=== PATIENT | male | born 1980 | race Caucasian/White ===

== ENCOUNTER 2020-01-19 10:55 | Emergency (ER) | payer MEDICAID | END 2020-01-19 12:05 | disposition left against medical advice (07) | LOC: JP.ED 10:55 | DX: Z53.21 Procedure and treatment not carried out due to patient leaving prior to being seen by health care provider (principal) ==

== ENCOUNTER 2020-08-22 22:53 | Emergency (ER) | payer MEDICAID ==
[2020-08-22 23:10] VITALS: BP 103/69; PULSE 101
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
[2020-08-22] MEDS: HYDROmorphone 1 MG/ML Syringe IM ONE (23:33)
== END 2020-08-23 00:55 | disposition home or self-care (01) ==
LOC: JP.ED 22:53
DX: S02.642D Fracture of ramus of left mandible, subsequent encounter for fracture with routine healing (principal); S12.491D Other nondisplaced fracture of fifth cervical vertebra, subsequent encounter for fracture with routine healing; S82.84 Bimalleolar fracture of lower leg; S32.421D Displaced fracture of posterior wall of right acetabulum, subsequent encounter for fracture with routine healing; S02.19XA Other fracture of base of skull, initial encounter for closed fracture; Z79.899 Other long term (current) drug therapy; X58.XXXD Exposure to other specified factors, subsequent encounter
CPT/HCPCS: 96372; 99283; 99284; J1170

== ENCOUNTER 2020-09-07 14:27 | Emergency (ER) | payer MEDICAID ==
[2020-09-07] MEDS ORDERED: HYDROmorphone 1 MG/ML Syringe IM ONE ×2 (14:46→16:10)
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
--- NOTE | 2020-09-07 16:34 | CRLCR ---
Indication: Wound Technique: Three views of the right ankle Comparison: None available Findings/Impression: Bones: Postsurgical changes with 3 screws traversing the anterior and mid talus and a small adjacent metallic density. Multiple small ovoid sclerotic lesions in the distal tibia and fibula, talus, calcaneus and tarsal bones, which may represent osteopoikilosis if there is no history of neoplasm. Correlate clinically. No acute fracture or dislocation. A focus of osseous lucency in the anterior aspect of the distal tibia, in the region of an overlying soft tissue ulcer, however without gross osseous erosive or destructive changes. Joint spaces: Ovoid calcific densities projecting over the lateral ankle joint space on the oblique view, and several calcifications posterior to the talus, possibly related to the overlying soft tissues, although intra-articular calcifications are not excluded. Soft tissues: Soft tissue swelling. An anterior distal leg/proximal ankle soft tissue irregularity and lucency compatible with a wound/ulcer. Multiple soft tissue calcifications about the ankle. Dictated by Mauro Gee MD @ 09/07/2020 4:32:21 PM Dictated by: Mauro Gee MD @ 09/07/2020 16:32:28 (Electronically Signed)
== END 2020-09-07 17:22 | disposition home or self-care (01) ==
LOC: JP.ED 14:27
DX: L03.115 Cellulitis of right lower limb (principal); R56.9 Unspecified convulsions; Z79.899 Other long term (current) drug therapy; Z72.0 Tobacco use
CPT/HCPCS: 36415; 73610; 80053; 83605; 84145; 85025; 86140; 96372; 99284; J1170

== ENCOUNTER 2020-09-07 18:54 | Emergency (ER) | payer MEDICAID ==
[2020-09-07] MEDS ORDERED: Acetaminophen/HYDROcodone 325-5 MG Tab PO ONE (19:22)
--- NOTE | 2020-09-07 19:44 | EDM.PDOC ---
ED HPI GENERAL MEDICAL PROBLEM - General Chief Complaint: Lower Extremity Injury/Pain Stated Complaint: MEDICAL VIA [place] FOOT PAIN Time Seen by Provider: 09/07/20 19:14 Source of Information: Reports: Patient, Old Records History Limitations: Reports: No Limitations - History of Present Illness INITIAL COMMENTS - FREE TEXT/NARRATIVE: Kenan is a 40-year-old male presenting to the ED via [facility] for evaluation of right ankle and foot pain. The patient was seen in thoroughly evaluated in the emergency room earlier today and was started on Bactrim for cellulitis of his right foot and hydrocodone for pain control. The patient was discharged earlier today, however, his cousin who was going to give him a ride back home to [place] left without taking the patient and the patient thought it would be prudent to try to walk back to [place], [place] using his walker and made it about 6 blocks from the hospital until he tripped on a curb at [facility] at the corner of [address] causing him to invert his foot resulting in pain. Patient called EMS who brought him back to the hospital for evaluation. The patient had evidence of some bleeding on the double pair of socks that he was wearing, however, this appears to have come from the wound which is not actively bleeding at this time. The patient reports that he did not fall. We will repeat an x- ray of his ankle to make sure there is no change in the hardware. right foot Pain Score (Numeric/FACES): 10 - Related Data Allergies Allergy/AdvReac Type Severity Reaction Status Date / Time No Known Allergies Allergy Verified 09/07/20 19:02 Home Meds: Home Meds Gabapentin [Neurontin] 800 mg PO TID 01/19/20 [History] Cyclobenzaprine [Flexeril] 10 mg PO TID PRN 08/22/20 [History] HYDROmorphone [Dilaudid] 2 mg PO Q4H PRN 08/22/20 [History] Phenytoin 100 mg PO TID 08/22/20 [History] levETIRAcetam [Keppra] 1,000 mg PO BID 08/22/20 [History] Past Medical History HEENT History: Reports: None Gastrointestinal History: Reports: None Musculoskeletal History: Reports: Fracture Neurological History: Reports: Seizure, Other (See Below) Other Neuro History: numbness in jaw from injury Psychiatric History: Reports: Anxiety, Depression - Infectious Disease History Infectious Disease History: Reports: Chicken Pox - Past Surgical History Head Surgeries/Procedures: Reports: None HEENT Surgical History: Reports: Oral Surgery Other HEENT Surgeries/Procedures: titanium plate in jaw numbness from injury GI Surgical History: Reports: Appendectomy Neurological Surgical History: Reports: None Musculoskeletal Surgical History: Reports: Other (See Below) Other Musculoskeletal Surgeries/Procedures:: plate in jaw Dermatological Surgical History: Reports: None Social & Family History - Tobacco Use Tobacco Use Status *Q: Current Every Day Tobacco User Years of Tobacco use: 24 Packs/Tins Daily: 0.5 - Caffeine Use Caffeine Use: Reports: Coffee, Soda - Recreational Drug Use Recreational Drug Use: No Review of Systems - Review of Systems Review Of Systems: See Below Constitutional: Reports: No Symptoms Eyes: Reports: No Symptoms Ears: Reports: No Symptoms Nose: Reports: No Symptoms Mouth/Throat: Reports: No Symptoms Respiratory: Reports: No Symptoms Cardiovascular: Reports: No Symptoms GI/Abdominal: Reports: No Symptoms Genitourinary: Reports: No Symptoms Musculoskeletal: Reports: Joint Pain (Right ankle), Joint Swelling (Right ankle) Skin: Reports: Wound (Dorsal right ankle) Neurological: Reports: Difficulty Walking (Due to his ankle injury, multiple right-sided surgeries on his lower extremity) ED EXAM, GENERAL - Physical Exam Exam: See Below Exam Limited By: No Limitations General Appearance: Alert, Anxious, Mild Distress Head: Atraumatic, Normocephalic Neck: Normal Inspection, Supple Respiratory/Chest: No Respiratory Distress, Lungs Clear Cardiovascular: Normal Peripheral Pulses, Regular Rate, Rhythm Peripheral Pulses: 2+: Radial (L), Radial (R), Posterior Tibial (L), Posterior Tibial (R) GI/Abdominal: Normal Bowel Sounds Extremities: Increased Warmth (Dorsal right foot), Redness (Small woundulcer measuring 2.5 x 2.2 cm on the dorsal right ankle with old blood. No active bleeding at this time.), Other (Tenderness with movement of the right ankle without obvious deformity.) Neurological: Alert, Oriented, No Motor/Sensory Deficits Skin Exam: Warm, Erythema (Dorsal right foot and ankle), Increased Warmth (Dorsal right foot and ankle), Wound/Incision (Small woundulcer measuring 2.5 x 2.2 cm on the dorsal right ankle with old blood. No active bleeding at this time.) Course - Vital Signs Last Recorded V/S: Last Vital Signs Temp 36.4 C 09/07/20 19:03 Pulse 98 09/07/20 19:03 Resp 18 09/07/20 19:03 BP 124/95 H 09/07/20 19:03 Pulse Ox 98 09/07/20 19:03 - Orders/Labs/Meds Orders: Active Orders 24 hr Category Date Time Status Ankle Min 3V Rt [CR] Stat Exams 09/07/20 19:41 Taken Meds: Medications Discontinued Medications Generic Name Dose Route Start Last Admin Trade Name Freq PRN Reason Stop Dose Admin Hydrocodone Bitart/Acetaminophen 1 tab 09/07/20 19:22 09/07/20 19:25 [place] 325-5 Mg PO 09/07/20 19:23 1 tab ONETIME ONE Administration Departure - Departure Time of Disposition: 20:31 Disposition: Home, Self-Care 01 Clinical Impression: Cellulitis of right foot, Encounter for pain management, Pterygoid plate fracture Open bimalleolar fracture of right ankle Qualifiers: Encounter type: subsequent encounter Open fracture type: open type III Fracture healing: with routine healing Qualified Code(s): S82.841F - Displaced bimalleolar fracture of right lower leg, subsequent encounter for open fracture type IIIA, IIIB, or IIIC with routine healing Right acetabular fracture Qualifiers: Encounter type: subsequent encounter Sublocation of acetabulum: posterior wall Fracture type: closed Fracture alignment: displaced Fracture healing: with routine healing Qualified Code(s): S32.421D - Displaced fracture of posterior wall of right acetabulum, subsequent encounter for fracture with routine healing Fracture of left ramus of mandible Qualifiers: Encounter type: subsequent encounter Fracture type: closed Fracture healing: with routine healing Qualified Code(s): S02.642D - Fracture of ramus of left mandible, subsequent encounter for fracture with routine healing C5 vertebral fracture Qualifiers: Encounter type: subsequent encounter Fracture type: closed Fracture morphology: other fracture Fracture alignment: nondisplaced Fracture healing: with routine healing Qualified Code(s): S12.491D - Other nondisplaced fracture of fifth cervical vertebra, subsequent encounter for fracture with routine healing - Discharge Information *PRESCRIPTION DRUG MONITORING PROGRAM REVIEWED*: No *COPY OF PRESCRIPTION DRUG MONITORING REPORT IN PATIENT ANUSHA: No Instructions: Cellulitis, Adult, Displaced Medial or Posterior Malleolar Ankle Fracture Treated With ORIF, Care After Referrals: PCP,None [Primary Care Provider] - Forms: ED Department Discharge Care Plan Goals: Follow-up as mentioned from your visit earlier today. Sepsis Event Note (ED) - Evaluation Sepsis Screening Result: No Definite Risk - Focused Exam Vital Signs: Vital Signs Temp Pulse Resp BP Pulse Ox 09/07/20 19:03 36.4 C 98 18 124/95 H 98 09/07/20 19:00 36.4 C 98 18 124/95 H 98 - Problem List & Annotations (1) Cellulitis of right foot SNOMED Code(s): 134592192 Code(s): L03.115 - CELLULITIS OF RIGHT LOWER LIMB Status: Acute Priority: Medium Current Visit: Yes (2) Encounter for pain management SNOMED Code(s): 030010881 Code(s): R52 - PAIN, UNSPECIFIED Status: Acute Priority: Medium Current Visit: Yes - Problem List Review Problem List Initiated/Reviewed/Updated: Yes - My Orders Last 24 Hours: My Active Orders 09/07/20 19:41 Ankle Min 3V Rt [CR] Stat - Assessment/Plan Last 24 Hours: My Active Orders 09/07/20 19:41 Ankle Min 3V Rt [CR] Stat
--- NOTE | 2020-09-08 11:19 | CR ---
Ankle Min 3V Rt CLINICAL HISTORY: New injury FINDINGS: The soft tissues are swollen. No acute fracture or dislocation is noted. Ankle mortise is intact. There are numerous ossific and calcific densities in the periarticular region of the talonavicular joint and the lateral ankle mortise. There are fixation screws anteriorly in the talus which is somewhat flattened. This is similar to prior study. There are numerous small radiopacities in the distal tibia fibula and the tarsal bones. 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
== END 2020-09-07 20:39 | disposition home or self-care (01) ==
LOC: JP.ED 18:54
DX: S82.84 Bimalleolar fracture of lower leg (principal); S02.19XA Other fracture of base of skull, initial encounter for closed fracture; S32.421D Displaced fracture of posterior wall of right acetabulum, subsequent encounter for fracture with routine healing; S02.642D Fracture of ramus of left mandible, subsequent encounter for fracture with routine healing; S12.491D Other nondisplaced fracture of fifth cervical vertebra, subsequent encounter for fracture with routine healing; L03.115 Cellulitis of right lower limb; R56.9 Unspecified convulsions; Z79.899 Other long term (current) drug therapy; Z72.0 Tobacco use; X50.1XXD Overexertion from prolonged static or awkward postures, subsequent encounter
CPT/HCPCS: 73610; 99283; A9270